=== PATIENT | male | born 1965 | race Caucasian/White ===

== ENCOUNTER → 2016-08-09 | Outpatient (CLI) | payer OTHER ==
[2016-08-09 18:52] LABS: LYME DISEASE AB IGG NEG (NEG)
[2016-08-09 18:55] LABS: LYME DISEASE AB IGM NEG (NEG)
[2016-08-14 01:26] LABS: 18KDIGG BAND NONREACTIVE (NONREACTIVE); 23KDIGG BAND NONREACTIVE (NONREACTIVE); 23KDIGM BAND NONREACTIVE (NONREACTIVE); 28KDIGG BAND NONREACTIVE (NONREACTIVE); 30KDIGG BAND NONREACTIVE (NONREACTIVE); 39KDIGG BAND NONREACTIVE (NONREACTIVE); 39KDIGM BAND NONREACTIVE (NONREACTIVE); 41KDIGG BAND REACTIVE (NONREACTIVE); 41KDIGM BAND NONREACTIVE (NONREACTIVE); 45KDIGG BAND NONREACTIVE (NONREACTIVE); 58KDIGG BAND NONREACTIVE (NONREACTIVE); 66KDIGG BAND NONREACTIVE (NONREACTIVE); 93KDIGG BAND NONREACTIVE (NONREACTIVE)
== END | disposition home or self-care (01) ==
LOC: C.LABPBG 14:37
PROVIDERS: ATTEND Chiropractor
DX: A69.20 Lyme disease, unspecified (principal)